=== PATIENT | male | born 1990 | race Two or more races ===

== ENCOUNTER 2024-09-02 14:51 | Emergency (ER) | payer OTHER ==
[~2024-09-02] VITALS: Ht 185.4 cm; Wt 118.1 kg
[2024-09-02 15:09] VITALS: BP 130/77; PULSE 84; RESP 18; TEMP 98.1; O2SAT 96
[2024-09-02 15:24] LABS: BASOPHILS % (AUTO) 0.7 % (0.0-2.0); EOSINOPHILS % (AUTO) 1.3 % (1.0-6.0); HEMATOCRIT 44.9 % (41-53); HEMOGLOBIN 14.8 g/dL (13.5-17.5); LYMPHOCYTES # (AUTO) 1.4 K/uL (1.0-4.8); LYMPHOCYTES % (AUTO) 19.6 % (22.0-44.0); MEAN CORPUSCULAR VOLUME 91 fL (80-100); MONOCYTES # (AUTO) 0.6 K/uL (0.1-1.0); MONOCYTES % (AUTO) 8.1 % (2.0-9.0); NEUTROPHILS % (AUTO) 70.3 % (40.0-70.0); PLATELET COUNT (AUTO) 296 K/uL (150-450); RED BLOOD CELL COUNT(AUTO) 4.94 MIL/uL (4.50-5.90); RED CELL DISTRIBUTION WIDTH 14.5 % (11.5-14.5); WHITE BLOOD COUNT (AUTO) 7.1 K/uL (4.5-11.0)
[2024-09-02 15:30] LABS: ANION GAP 10 mmol/L (8-16); CARBON DIOXIDE 28 mmol/L (22-29); CHLORIDE 106 mmol/L (98-107); CREATININE 1.03 mg/dL (0.60-1.30); GLOMERULAR FILTR. RATE CALC > 60 mL/min (>60); GLUCOSE,RANDOM 105 mg/dL (70-110); LIPASE 72 U/L (16-77); POTASSIUM 4.6 mmol/L (3.5-5.1); SODIUM SERUM 144 mmol/L (136-145); UREA NITROGEN, BLOOD 13 mg/dL (7-18)
[2024-09-02 15:43] LABS: ALBUMIN 3.7 g/dL (3.4-5.0); BILIRUBIN,DIRECT 0.2 mg/dL (0.00-0.20); BILIRUBIN,TOTAL 0.4 mg/dL (0.1-1.0); TOTAL PROTEIN, SERUM 7.6 g/dL (6.4-8.2)
[2024-09-02] MEDS: SODIUM CHLORIDE 0.9% 1,000 ML IV ONE (16:48)
[2024-09-02] MEDS: MAG HYDROX/ALUMINUM HYD/SIMETH 30 ML SUSPENSION UDCUP PO ONE (16:48)
[2024-09-02] MEDS: ONDANSETRON HCL 4 MG/2 ML VIAL IVP ONE (16:48)
[2024-09-02] MEDS: KETOROLAC TROMETHAMINE 30 MG/ML VIAL IVP ONE (16:48)
[2024-09-02] MEDS: FAMOTIDINE 20 MG/2 ML VIAL IVP ONE (16:48)
[2024-09-02] MEDS ORDERED: IOHEXOL 350 MG/ML 100 ML VIAL ONE (17:20)
[2024-09-02] MEDS ORDERED: 0.9% SODIUM CHLORIDE 10 ML SYRINGE IVP ONE (17:21)
[2024-09-02] MEDS ORDERED: SODIUM CHLORIDE 0.9% 100 ML ONE (17:21)
== END 2024-09-02 18:49 | disposition home or self-care (01) ==
LOC: EMS 14:51
DX: R10.9 Unspecified abdominal pain (principal); K92.1 Melena; K76.0 Fatty (change of) liver, not elsewhere classified; Z98.84 Bariatric surgery status
CPT/HCPCS: 99285; 74177; 96374; 96375; 96361; 80048; 80076; 83690; 85025; 36415; J1885; Q9967; J3490; J2405; J7030; J7050